=== PATIENT | female | born 1995 | race Hispanic/Latino ===

== ENCOUNTER 2016-09-14 19:28 | Emergency (ER) | payer MEDICAID, OTHER ==
[~2016-09-14] VITALS: Ht 165.1 cm; Wt 104.3 kg
[2016-09-14] MEDS ORDERED: ONDANSETRON 4MG/2ML VIAL (J2405) IV ONE (20:00)
[2016-09-14] MEDS ORDERED: ACETAMINOPHEN 325 MG TAB PO ONE (20:00)
[2016-09-14] MEDS ORDERED: MORPHINE 4 MG/ML 1ML SYRINGE IV ONE ×2 (20:00→21:30)
[2016-09-14] MEDS ORDERED: HYDROmorphone HCL 1 MG/ML SYRINGE (J1170) IV ONE (20:45)
[2016-09-14 21:02] LABS: BASO % 0.2 % (0.0-1.0); EOS # 0.1 K/mm3 (0.0-0.50); EOS % 1.1 % (0.0-3.0); LARGE UNSTAINED CELL # 0.1 K/mm3 (0.0-0.4); LARGE UNSTAINED CELL % 1.1 % (0.0-4.0); LYMPH # 1.6 K/mm3 (1.5-6.5); LYMPH % 12.4 % (24.0-44.0); MEAN CORPUSCULAR HEMOGLOBIN 26.8 pg (27.0-33.0); MEAN CORPUSCULAR HGB CONC 33.3 g/dl (32.0-36.5); MEAN CORPUSCULAR VOLUME 80.5 fl (80.0-96.0); MONO # 0.5 K/mm3 (0.0-0.8); MONO % 4.4 % (0.0-5.0); NEUTROPHILS # 9.8 K/mm3 (1.8-7.7); NEUTROPHILS % 80.7 % (36.0-66.0); PLATELET COUNT, AUTOMATED 379 k/mm3 (150-450); RED CELL DISTRIBUTION WIDTH 13.2 % (11.5-14.5); WHITE BLOOD COUNT 12.1 K/mm3 (4.0-10.0)
[2016-09-14 21:06] LABS: ANION GAP 10 MEQ/L (8-16); BLOOD UREA NITROGEN 13 MG/DL (7-18); CALCIUM LEVEL 9.1 MG/DL (8.5-10.1); CARBON DIOXIDE LEVEL 24 MEQ/L (21-32); CHLORIDE LEVEL 105 MEQ/L (98-107); CREATININE FOR GFR 0.87 MG/DL (0.55-1.02); GLUCOSE, FASTING 90 MG/DL (70-105); POTASSIUM SERUM 4.2 MEQ/L (3.5-5.1); SODIUM LEVEL 139 MEQ/L (136-145)
--- NOTE | 2016-09-14 21:33 | REP ---
Clinical: Acute headache . Comparison: None . Findings: The ventricles, sulci, and cisterns are normal in position and appearance. Vera-white differentiation is maintained. No acute intracranial hemorrhage, mass/mass effect, pathology or trauma/injury. No evidence for acute infarction. No extra-axial fluid collection. Calvarium is intact. Paranasal sinuses and mastoid air cells are clear. Impression: Normal noncontrast head CT. No evidence for acute intracranial pathology or trauma/injury. Signed by Jeff Torres MD 09/14/2016 09:24 P
[2016-09-14 21:37] LABS: METHADONE URINE NEGATIVE (NEGATIVE)
[2016-09-14] MEDS ORDERED: KETOROLAC 30 MG/ML VIAL (J1885) IV ONE (22:15)
[2016-09-14 22:45] LABS: GLUCOSE CSF 56 MG/DL (40-75)
[2016-09-14 22:51] LABS: RBC CSF AUTO 71 /mm3 (0-0); WBC CSF AUTO 4 /mm3 (0-10)
[2016-09-14 22:54] LABS: APPEARANCE, CSF CLEAR (CLEAR); COLOR, CSF COLORLESS (COLORLESS); CSF DIFF IF INDICATED? NO (NO); CSF TUBE# CELL CNT TUBE 4
[2016-09-14 22:55] LABS: CSF DILUENT LOT # 6165
[2016-09-14 23:23] LABS: RBC CSF AUTO 33 /mm3 (0-0); WBC CSF AUTO 4 /mm3 (0-10)
[2016-09-14 23:24] LABS: APPEARANCE, CSF CLEAR (CLEAR); COLOR, CSF COLORLESS (COLORLESS); CSF DIFF IF INDICATED? NO (NO); CSF TUBE# CELL CNT TUBE 3
[2016-09-14 23:43] VITALS: BP 126/78
[2016-09-14 23:49] LABS: CSF DILUENT LOT # 6165
== END 2016-09-15 00:02 | disposition home or self-care (01) ==
LOC: EDBD 19:28 → M ED 20:51
DX: R50.9 Fever, unspecified (principal); R51 Headache
CPT/HCPCS: 36415; 62270; 70450; 80048; 80306; 82945; 84157; 85025; 87015; 87040; 87070; 87205; 87529; 87804; 89050; 96374; 96375; 96376; 99284; J1170; J1885; J2405

== ENCOUNTER 2017-05-08 11:24 | Emergency (ER) | payer OTHER ==
[~2017-05-08] VITALS: Ht 165.1 cm; Wt 113.6 kg
[2017-05-08] MEDS ORDERED: ERYTOIN8 OS (13:54)
[2017-05-08 14:02] VITALS: BP 154/79
== END 2017-05-08 14:05 | disposition home or self-care (01) ==
LOC: M ED 11:24
DX: H00.014 Hordeolum externum left upper eyelid (principal)

== ENCOUNTER 2017-06-26 08:34 | Emergency (ER) | payer OTHER ==
[2017-06-26 10:05] LABS: CONTROL LINE MONO INT CTR LINE PRESENT
== END 2017-06-26 10:15 | disposition home or self-care (01) ==
LOC: M ED 08:34
DX: J02.9 Acute pharyngitis, unspecified (principal)
CPT/HCPCS: 86308

== ENCOUNTER 2018-06-05 07:12 | Emergency (ER) | payer OTHER | END 2018-06-05 07:57 | disposition home or self-care (01) | LOC: M ED 07:12 | DX: J02.9 Acute pharyngitis, unspecified (principal) | CPT/HCPCS: 87880 ==

== ENCOUNTER → 2018-12-24 | Outpatient (CLI) | payer OTHER ==
[~2018-12-24] MED LIST: AMOX500C PO; ERYTOIN8 OS; MAGICMW MT; PRED10TA2 PO
--- NOTE | 2018-12-24 15:02 | REP ---
Clinical: Trauma. Contusion. Technique: AP, lateral, bilateral oblique and sunrise views right knee. Findings: There is no evidence for acute fracture or dislocation. Mild degenerative changes are appreciated including subchondral sclerosis to the tibial plateau as well as very early spurring/osteophyte formation. Questionable small calcified loose body in the intercondylar notch cannot be excluded. Impression: Mild degenerative changes. No acute fracture or dislocation. Electronically Signed by Jeff Torres MD 12/24/2018 10:48 A
== END ==
LOC: M WUC 10:23
PROVIDERS: ATTEND Physician Assistant
DX: M17.11 Unilateral primary osteoarthritis, right knee (principal)

== ENCOUNTER → 2019-01-18 | Outpatient (REF) | payer OTHER | LOC: M LAB REF 09:56 | PROVIDERS: ATTEND Physician Assistant | DX: R11.0 Nausea (principal) ==

== ENCOUNTER → 2019-01-26 | Outpatient (CLI) | payer OTHER ==
[2019-01-26 13:06] LABS: BASO % 0.5 % (0.0-1.0); EOS # 0.2 10^3/uL (0.0-0.50); EOS % 2.4 % (0.0-3.0); HEMATOCRIT 37.5 % (36.0-47.0); HEMOGLOBIN 11.9 g/dl (12.0-15.5); LYMPH # 1.5 10^3/uL (1.5-6.5); MEAN CORPUSCULAR HEMOGLOBIN 26.3 pg (27.0-33.0); MEAN CORPUSCULAR HGB CONC 31.7 g/dl (32.0-36.5); MONO # 0.7 10^3/uL (0.0-0.8); MONO % 10.4 % (0.0-5.0); NEUTROPHILS # 4.2 10^3/uL (1.8-7.7); NEUTROPHILS % 63.5 % (36.0-66.0); PLATELET COUNT, AUTOMATED 358 10^3/uL (150-450); RED BLOOD COUNT 4.52 10^6/uL (4.00-5.40); WHITE BLOOD COUNT 6.6 10^3/uL (4.0-10.0)
[2019-01-26 13:21] LABS: ALBUMIN 3.4 GM/DL (3.2-5.2); ALT/SGPT 22 U/L (12-78); BILIRUBIN,TOTAL 0.3 MG/DL (0.2-1.0); BLOOD UREA NITROGEN 14 MG/DL (7-18); CALCIUM LEVEL 8.6 MG/DL (8.5-10.1); CARBON DIOXIDE LEVEL 29 MEQ/L (21-32); CHLORIDE LEVEL 105 MEQ/L (98-107); CREATININE FOR GFR 0.74 MG/DL (0.55-1.30); GLOMERULAR FILTRATION RATE > 60.0 (>60); GLUCOSE, FASTING 99 MG/DL (70-100); POTASSIUM SERUM 4.6 MEQ/L (3.5-5.1); SODIUM LEVEL 140 MEQ/L (136-145); TOTAL PROTEIN 7.6 GM/DL (6.4-8.2)
[2019-01-27 14:07] LABS: EBV VIRAL CAPSID AG IgM <36.0 U/mL (0.0-35.9)
== END ==
LOC: M WUC 08:48
PROVIDERS: ATTEND Physician Assistant
DX: J02.9 Acute pharyngitis, unspecified (principal)

== ENCOUNTER → 2019-02-21 | Outpatient (CLI) | payer OTHER ==
[2019-02-21 13:55] LABS: FREE T4 1.14 NG/DL (0.76-1.46)
[2019-02-21 13:58] LABS: LUTEINIZING HORMONE 9.8 mIU/mL
[2019-02-21 13:59] LABS: FOLLICLE STIMULATING HORMONE 8.4 mIU/mL
[2019-02-21 14:24] LABS: HCG, SERUM QUALITATIVE NEGATIVE (NEGATIVE)
[2019-02-22 09:41] LABS: HEPATITIS B SURFACE ANTIGEN NEGATIVE (NEGATIVE)
[2019-02-22 10:08] LABS: HEPATITIS B CORE ANTIBODY IGM NEGATIVE (NEGATIVE); HEPATITIS C VIRUS ABY INDEX 0.1 INDEX (<0.8)
[2019-02-22 10:11] LABS: HEPATITIS A ANTIBODY IGM NEGATIVE (NEGATIVE)
[2019-02-23 00:06] LABS: TESTOSTERONE FREE (DIRECT) 1.3 pg/mL (0.0-4.2)
== END ==
LOC: M SMT 10:15
PROVIDERS: ATTEND Advanced Practice Midwife
DX: N91.1 Secondary amenorrhea (principal)

== ENCOUNTER 2019-04-05 21:40 | Inpatient (IN) | payer MEDICAID, OTHER ==
[~2019-04-05] VITALS: Ht 165.1 cm; Wt 128.1 kg
[2019-04-05] MEDS ORDERED: NS 1,000 ML IV ONE (21:45)
[2019-04-05] MEDS ORDERED: CHARCOAL ACTIVATED LIQUID 25 GM/120 ML BTL PO ONE (22:00)
[2019-04-05 22:07] LABS: BASO # 0.1 10^3/uL (0.0-0.2); BASO % 0.5 % (0.0-1.0); EOS # 0.4 10^3/uL (0.0-0.5); EOS % 2.9 % (0.0-3.0); HEMATOCRIT 34.9 % (36.0-47.0); HEMOGLOBIN 11.5 g/dl (12.0-15.5); LYMPH # 3.6 10^3/uL (1.5-5.0); LYMPH % 27.4 % (24.0-44.0); MEAN CORPUSCULAR HEMOGLOBIN 27.3 pg (27.0-33.0); MEAN CORPUSCULAR VOLUME 82.7 fl (80.0-96.0); MONO # 0.7 10^3/uL (0.0-0.8); NEUTROPHILS # 8.4 10^3/uL (1.5-8.5); NEUTROPHILS % 63.8 % (36.0-66.0); PLATELET COUNT, AUTOMATED 391 10^3/uL (150-450); RED BLOOD COUNT 4.22 10^6/uL (4.00-5.40); WHITE BLOOD COUNT 13.1 10^3/uL (4.0-10.0)
[2019-04-05 22:33] LABS: HCG, SERUM QUALITATIVE NEGATIVE (NEGATIVE)
[2019-04-05 22:42] LABS: ACETAMINOPHEN LEVEL 78.1 UG/ML (10.0-30.0); ALBUMIN 3.5 GM/DL (3.2-5.2); ALT/SGPT 27 U/L (12-78); BILIRUBIN,DIRECT < 0.1 MG/DL (0.0-0.2); BILIRUBIN,TOTAL 0.5 MG/DL (0.2-1.0); BLOOD UREA NITROGEN 13 MG/DL (7-18); CALCIUM LEVEL 8.4 MG/DL (8.5-10.1); CARBON DIOXIDE LEVEL 25 MEQ/L (21-32); CHLORIDE LEVEL 105 MEQ/L (98-107); CPK CREATINE PHOSPHOKINASE 503 U/L (26-192); CREATININE FOR GFR 0.94 MG/DL (0.55-1.30); ETHYL ALCOHOL (ETHANOL) < 0.003 % (0.000-0.010); GLOMERULAR FILTRATION RATE > 60.0 (>60); GLUCOSE, FASTING 104 MG/DL (70-100); POTASSIUM SERUM 4.6 MEQ/L (3.5-5.1); SALICYLATE LEVEL < 1.7 MG/DL (5.0-30.0); SODIUM LEVEL 138 MEQ/L (136-145); TOTAL PROTEIN 7.5 GM/DL (6.4-8.2)
[2019-04-06 03:23] LABS: AMPHETAMINES LEVEL URINE NEGATIVE (NEGATIVE); BARBITURATES URINE NEGATIVE (NEGATIVE); BENZODIAZEPINES URINE NEGATIVE (NEGATIVE); CANNABINOIDS URINE NEGATIVE (NEGATIVE); COCAINE METABOLITE URINE NEGATIVE (NEGATIVE); METHADONE URINE NEGATIVE (NEGATIVE); OPIATES URINE NEGATIVE (NEGATIVE); PHENCYCLIDINE URINE NEGATIVE (NEGATIVE)
--- NOTE | 2019-04-06 10:55 | ECGEPIP ---
[facility] - ED Test Date: 2019-04-05 Pat Name: CARLOZ ZIMMERMAN Department: Room: - Gender: Female [employer] Supervisor: : 1995 Requested By: RODRICK Horn Order Number: [id number] Reading MD: Sabrina Contreras Measurements Intervals [place] Rate: 81 P: 12 MT: 172 QRS: 69 QRSD: 88 T: 30 QT: 346 QTc: 402 Interpretive Statements SINUS RHYTHM WITH SINUS ARRHYTHMIA NO PRIOR Electronically Signed on 04-06-2019 10:54:50 EDT by Sabrina Contreras
[2019-04-06] MEDS ORDERED: MOM 30ML SUSPENSION UDC PO PRN (12:30)
[2019-04-06] MEDS ORDERED: MAALOX 30 ML SUSP *UDC PO PRN (12:30)
[2019-04-06 14:52] VITALS: BP 134/70
[2019-04-06] MEDS ORDERED: traZODone 50 MG TAB PO PRN (21:00)
[2019-04-07 06:15] VITALS: BP 129/62
[2019-04-07 07:16] LABS: ALBUMIN 3.6 GM/DL (3.2-5.2); BILIRUBIN,DIRECT 0.1 MG/DL (0.0-0.2); BILIRUBIN,TOTAL 0.5 MG/DL (0.2-1.0); TOTAL PROTEIN 7.4 GM/DL (6.4-8.2)
--- NOTE | 2019-04-07 14:11 | MHHPEPDOC ---
General Date Of Admission: Apr 06, 2019 Legal Status: 9.39 Chief Complaint "I took an OD of Tylenol." History of Present Illness HISTORY OF THE PRESENT ILLNESS: Patient is a 23 -year-old , female, with no previous psych history who was brought to ED by her mother after pt called her mother and told her she overdosed on tylenol and needed help b/c she regretted doing it immediately after she took them. Pt in the ED stated that her boyfriend recently broke up with her last week, moved to [place], told her he didn't want to her, and was acting very cold toward her causing her to feel depressed, crying for the last 3 days, with eventual OD on tylenol that had not been planned. Pt stated in the ED that she regretted taking the OD and wanted to go home as her 4y/o daughter who had been visiting her father in [place] was returning the day of admission and pt wanted to be with her. Per ED, pt minimizing her symptoms. When pt first brought to ED she stated she took 50 tylenol then when seen by [facility] staff stated in was 15-20. She was given charcoal in ED per ED. Tylenol level in ED 78.1 03/06/19 then 44.9 03/07/19. Psychiatric Review of Systems Depression (2 or more weeks): depressed mood, feelings of worthlesness, difficulty concentrating, suicidal thoughts Psychosis: denies PTSD: denies Anxiety: situational anxiety, stressor related anxiety Anxiety/ 6 months or more of: restlessness, keyed up, difficulty concentrating Past Psychiatric History Previous Psychiatric Diagnosis: denies Previous Psychiatric Admissions: denies Suicide Attempts: denies Psychiatric Follow-up: denies Psychiatric medications: denies Past Medical History Medical Problems denies Head Injury: No Seizures: No Hospitalizations: No Surgeries: No Family Medical/Psychiatric HX Medical Problems noncontributory Psychiatric Disorders: No Addiction: No Suicide Attemps/Completions: No Addiction History denies Social History Childhood: Born and raised in [place], moved to [facility] with parents as a teen. Good childhood Abuse/Trauma:denies Current Living Situation: lives in [place] with her 4y/o daughter Education: high school grad Employment: works as a cook in a restaurant Social Support: mother Legal: denies Marital: , ex- lives in [place] and is 4y/o daughter's father Mental Status Examination General Appearance: well groomed, appears stated age, hospital scubs/clothing Build: average Demeanor: average Eye Contact: average Activity: anxious, other (pleasant, friendly) Behavior: cooperative Speech: clear, normal volume, reg/rate,rhythm,volume Mood: euthymic, anxious Mood "better" Affect: full, appropriate, congruent, anxious Thought Process: logical/linear, depressed, intact Thought Content (Delusions): none reported, denies SI, HI, AVH Thought Content (Other): none reported Thought Content (Aggressive): none reported Perception (Hallucinations): none reported Perception (Other): none reported Cognition (Impairment of): none reported Cognition(Intelligence Est.): average Oriented: Awake, Alert, Oriented times three Insight: fair Psychosis: Denies Diagnoses Adjustment d/o with depression and anxiety A-FIB/CHADSVASC A-FIB History Current/History of A-Fib/PAF?: No Assessment Pt seen and states she here b/c "I ended up having a rough night, my daughter has been away for 10 days, and my fiance just decided to move to [place]." States she had an anxiety attack and took some tylenol then tried to puck to get it out, called her family for help, family called pt's boyfriend who showed up to take her to the ED for help. States it was helpful for her in the ED and "they did some coping with them." States she feels better today but still has some anxiety due to current stressors and misses her daughter. Pt appears to have adjustment type disorder as denies depression prior break-up. Is attending groups and feels beneficial. Would prefer to try outpatient therapy first prior to starting any psychotropic medications. Will provide vistaril prn anxiety and trazodone prn insomnia, risks/benefits discussed. Denies SI/HI, hallucinations, delusions. Feels safe here. Initial Treatment Plan 1. Patient was admitted on a 9.39 status. 2. Complete history was obtained. 3. With patients permission, family will be contacted and database will be expanded. 4. Patients medication regimen will be reviewed and changed accordingly. 5. Patient will be provided with protected environment. 6. Patient will be treated with individual, group, and milieu therapies. 7. Patient will receive supportive psych-education. 8. Discharge planning will commence immediately. 9. Outpatient follow-up treatment will be strongly recommended. 10. The initial treatment plan will focus initially on: * Depression. * Risk for suicide. 11. vistaril 10mg q6hr prn anxiety and trazodone 50mg qhs prn insomnia ESTIMATED LENGTH OF STAY: 3-5 DAYS. TIME SPENT COUNSELING AND COORDINATING INITIAL CARE: 60 minutes. Vital Signs Vital Signs Date Time Temp Pulse Resp B/P (MAP) Pulse Ox O2 Delivery O2 Flow Rate FiO2 04/07/19 06:15 98.7 80 16 129/62 (84) 04/06/19 14:52 98 04/06/19 09:17 Room Air Laboratory Data 24H Labs Laboratory Tests 2 04/07/19 06:20: Ammonia 17 04/07/19 06:23: Aspartate Amino Transf (AST/SGOT) 16, Alanine Aminotransferase (ALT/SGPT) 27, Alkaline Phosphatase 74, Total Bilirubin 0.5, Direct Bilirubin 0.1, Total Protein 7.4, Albumin 3.6, Albumin/Globulin Ratio 0.95L Medications No Active Prescriptions or Reported Meds Allergies Coded Allergies: No Known Allergies (Unverified , 04/05/19) DEANNE LUKE DO Apr 07, 2019 14:11
[2019-04-07] MEDS ORDERED: hydrOXYzine 10 MG TAB PO PRN (14:15)
[2019-04-07 17:33] VITALS: BP 126/83
--- NOTE | 2019-04-08 06:26 | HPE ---
DATE OF ADMISSION: 04/06/2019 HISTORY OF PRESENT ILLNESS: Please refer to psychiatric history and evaluation for further details on this admission. This examination and history is intended for medical issues, which may need treatment, followup, or consult on this 23-year-old female. ALLERGIES: No known allergies. PRIMARY CARE PROVIDER: She currently has none. SOCIAL HISTORY: She is . She was upset over a breakup with her boyfriend. She took possibly 15-20 Tylenol. She has a daughter age 4. Ethyl alcohol (EtOH) none. Smokes none. Recreational drug use none. PAST MEDICAL HISTORY: Negative. PAST SURGICAL HISTORY: Left anterior cruciate ligament (ACL) repair. HOME MEDICATIONS: None. FAMILY HISTORY: Mother hypertension. Brother diabetic type 2. ELECTROCARDIOGRAM (EKG): Showed sinus rhythm with slight sinus arrhythmia at rate of 81. LABORATORY STUDIES: White count 13.1, hemoglobin 11.5, hematocrit 34.9, platelets 391. Sodium 138, potassium 4.6, chloride 105, CO2 25, BUN 13, creatinine 0.94, nonfasting glucose 104, calcium 8.4, AST initially 40, recheck 16, ALT 27, recheck 27, CPK was 503, recheck this morning was 311. Acetaminophen initially 78.1 at 21:59 on 04/05/2019. 1:30 a.m. on 04/06/2019 was down to 44.4. Ten systems review was done. The patient had no complaints. Was unremarkable. PHYSICAL EXAMINATION: A 23-year-old cooperative female, in no acute distress. Height 65 inches, weight 122.73 kg, body mass index (BMI) 45.0 kg, blood pressure is 134/70, pulse 76, respirations 20, temperature 98, oxygen (O2) saturation 98%. The patient is alert and oriented times three. Pupils are equal and react to light. Extraocular movements (EOMs) intact. Cornea and sclerae clear. Conjunctivae normal. No facial asymmetry. Pharynx, tongue, gums pink and moist. Tongue is midline. NECK: Is supple without lymphadenopathy. No thyromegaly. No goiter. Carotids 2+ without bruit. CHEST: Clear to auscultation without wheeze or retraction. HEART: Is regular. ABDOMEN: Is benign. Bowel sounds positive. GENITOURINARY ()/RECTAL: Not done. EXTREMITIES: Show equal strength, full range of motion. No cyanosis, clubbing, or edema. Peripheral pulses equal and palpable bilaterally. SKIN: Is warm and dry. Cranial nerves II-XII grossly intact. IMPRESSION AND PLAN: 1. Psychiatric plan per psychiatry. 2. Elevated CK. Will recheck in a.m. to ensure return to normal. 3. Leukocytosis, probably secondary to overdose. Will recheck complete blood count (CBC) in the a.m. 4. No other acute medical issues.
[2019-04-08 06:43] VITALS: BP 137/74
[2019-04-08 07:27] LABS: BASO % 0.4 % (0.0-1.0); EOS # 0.4 10^3/uL (0.0-0.5); EOS % 3.7 % (0.0-3.0); HEMATOCRIT 36.8 % (36.0-47.0); HEMOGLOBIN 11.8 g/dl (12.0-15.5); LYMPH # 2.8 10^3/uL (1.5-5.0); LYMPH % 28.7 % (24.0-44.0); MEAN CORPUSCULAR HEMOGLOBIN 26.6 pg (27.0-33.0); MEAN CORPUSCULAR HGB CONC 32.1 g/dl (32.0-36.5); MEAN CORPUSCULAR VOLUME 82.9 fl (80.0-96.0); MONO # 0.5 10^3/uL (0.0-0.8); MONO % 5.2 % (0.0-5.0); NEUTROPHILS % 61.8 % (36.0-66.0); PLATELET COUNT, AUTOMATED 365 10^3/uL (150-450); RED BLOOD COUNT 4.44 10^6/uL (4.00-5.40); WHITE BLOOD COUNT 9.8 10^3/uL (4.0-10.0)
--- NOTE | 2019-04-08 09:12 | MHIPNPDOC ---
[facility] Progress Note Progress Note DATE OF SERVICE: 04/08/19 HISTORY: Patient is a 23 -year-old , female, with no previous psych history who was brought to ED by her mother after pt called her mother and told her she overdosed on tylenol and needed help b/c she regretted doing it immediately after she took them. Pt in the ED stated that her boyfriend recently broke up with her last week, moved to [place], told her he didn't want to her, and was acting very cold toward her causing her to feel depressed, crying for the last 3 days, with eventual OD on tylenol that had not been planned. Pt stated in the ED that she regretted taking the OD and wanted to go home as her 4y/o daughter who had been visiting her father in [place] was returning the day of admission and pt wanted to be with her. Per ED, pt minimizing her symptoms. When pt first brought to ED she stated she took 50 tylenol then when seen by [facility] staff stated in was 15-20. She was given charcoal in ED per ED. Tylenol level in ED 78.1 03/06/19 then 44.9 03/07/19. Pt seen and states she here b/c "I ended up having a rough night, my daughter has been away for 10 days, and my fiance just decided to move to [place]." States she had an anxiety attack and took some tylenol then tried to puck to get it out, called her family for help, family called pt's boyfriend who showed up to take her to the ED for help. States it was helpful for her in the ED and "they did some coping with them." States she feels better today but still has some anxiety due to current stressors and misses her daughter. Pt appears to have adjustment type disorder as denies depression prior break-up. Is attending groups and feels beneficial. Would prefer to try outpatient therapy first prior to starting any psychotropic medications. Will provide vistaril prn anxiety and trazodone prn insomnia, risks/benefits discussed. Denies SI/HI, hallucinations, delusions. Feels safe here. VITAL SIGNS: See below. NEW TEST RESULTS: tylenol level less than 2 (wnl). LFTs wnl, CPK 233 and is improving daily CURRENT MEDICATIONS: See below. MENTAL STATUS EXAMINATION: General Appearance: well groomed, appears stated age, hospital scrubs/clothing Build: average Demeanor: average Eye Contact: average Activity: anxious, other (pleasant, friendly) Behavior: cooperative Speech: clear, normal volume, reg/rate,rhythm,volume Mood: euthymic, less anxious Mood "alright" Affect: full, appropriate, congruent, less anxious Thought Process: logical/linear, less depressed, intact Thought Content (Delusions): none reported, denies SI, HI, AVH Thought Content (Other): none reported Thought Content (Aggressive): none reported Perception (Hallucinations): none reported Perception (Other): none reported Cognition (Impairment of): none reported Cognition(Intelligence Est.): average Oriented: Awake, Alert, Oriented times three Insight: fair Psychosis: Denies DIAGNOSES: Adjustment d/o with depression and anxiety ASSESSMENT:Pt seen and states that her mood is "alright." Endorses improved anxiety with attending groups and socializing with peers. Denies need to take vistaril for anxiety or trazodone for sleep since admission. States she's sleeping well at night w/o trazodone. States she's being social on the milieu which is beneficial. She is attending groups and finding them helpful. She denies SI/HI, hallucinations, delusions. Pt feels safe here. MANAGEMENT PLAN: continue plan vistaril 10mg q6hr prn anxiety trazodone 50mg qhs prn insomnia TIME SPENT: 30 minutes. Vital Signs Vital Signs Date Time Temp Pulse Resp B/P (MAP) Pulse Ox O2 Delivery O2 Flow Rate FiO2 04/08/19 06:43 98.0 83 14 137/74 (95) 04/06/19 14:52 98 04/06/19 09:17 Room Air Laboratory Data 24H Labs Laboratory Tests 2 04/07/19 15:42: Acetaminophen Level < 2.0L 04/08/19 07:02: Immature Granulocyte % (Auto) 0.2, White Blood Count 9.8, Red Blood Count 4.44, Hemoglobin 11.8L, Hematocrit 36.8, Mean Corpuscular Volume 82.9, Mean Corpuscular Hemoglobin 26.6L, Mean Corpuscular Hemoglobin Concent 32.1, Red Cell Distribution Width 12.8, Platelet Count 365, Neutrophils (%) (Auto) 61.8, Lymphocytes (%) (Auto) 28.7, Monocytes (%) (Auto) 5.2H, Eosinophils (%) (Auto) 3.7H, Basophils (%) (Auto) 0.4, Neutrophils # (Auto) 6.0, Lymphocytes # (Auto) 2.8, Monocytes # (Auto) 0.5, Eosinophils # (Auto) 0.4, Basophils # (Auto) 0.0, Nucleated Red Blood Cells % (auto) 0.0, Total Creatine Kinase 223H CBC/BMP Laboratory Tests 04/08/19 07:02 Red Blood Count 4.44, Mean Corpuscular Volume 82.9, Mean Corpuscular Hemoglobin 26.6 L, Mean Corpuscular Hemoglobin Concent 32.1, Red Cell Distribution Width 12.8, Neutrophils (%) (Auto) 61.8, Lymphocytes (%) (Auto) 28.7, Monocytes (%) (Auto) 5.2 H, Eosinophils (%) (Auto) 3.7 H, Basophils (%) (Auto) 0.4, Neutrophils # (Auto) 6.0, Lymphocytes # (Auto) 2.8, Monocytes # (Auto) 0.5, Eosinophils # (Auto) 0.4, Basophils # (Auto) 0.0 Current Medications Current Medications Medications (Trade) Dose Ordered Sig/Windy Route PRN Reason Start Time Stop Time Status Last Admin Dose Admin Al Hydrox/Mg Hydrox/Simethicone (Mylanta) 30 ml Q4HP PRN PO HEARTBURN/INDIGESTION 04/06/19 12:30 Home Med (Med Rec Complete!) ASDIRECTED XX 04/06/19 13:30 04/06/19 13:25 DC Hydroxyzine HCl (Atarax) 10 mg Q6HP PRN PO ANXIETY/AGITATION 04/07/19 14:15 Magnesium Hydroxide (Milk Of Magnesia) 30 ml DAILYPRN PRN PO CONSTIPATION 04/06/19 12:30 Trazodone HCl (Desyrel) 50 mg QHSP PRN PO INSOMNIA 04/06/19 21:00 Allergies Coded Allergies: No Known Allergies (Unverified , 04/05/19) DEANNE LUKE DO Apr 08, 2019 9:12 am
[2019-04-08 16:00] VITALS: BP 127/78
[2019-04-09 06:35] VITALS: BP 129/73
--- NOTE | 2019-04-09 08:50 | MHIPNPDOC ---
[facility] Progress Note Progress Note DATE OF SERVICE: 04/09/19 HISTORY: Patient is a 23 -year-old , female, with no previous psych history who was brought to ED by her mother after pt called her mother and told her she overdosed on tylenol and needed help b/c she regretted doing it immediately after she took them. Pt in the ED stated that her boyfriend recently broke up with her last week, moved to [place], told her he didn't want to her, and was acting very cold toward her causing her to feel depressed, crying for the last 3 days, with eventual OD on tylenol that had not been planned. Pt stated in the ED that she regretted taking the OD and wanted to go home as her 4y/o daughter who had been visiting her father in [place] was returning the day of admission and pt wanted to be with her. Per ED, pt minimizing her symptoms. When pt first brought to ED she stated she took 50 tylenol then when seen by [facility] [place] staff stated in was 15-20. She was given charcoal in ED per ED. Tylenol level in ED 78.1 03/06/19 then 44.9 03/07/19. Pt seen and states she here b/c "I ended up having a rough night, my daughter has been away for 10 days, and my fiance just decided to move to [place]." States she had an anxiety attack and took some tylenol then tried to puck to get it out, called her family for help, family called pt's boyfriend who showed up to take her to the ED for help. States it was helpful for her in the ED and "they did some coping with them." States she feels better today but still has some anxiety due to current stressors and misses her daughter. Pt appears to have adjustment type disorder as denies depression prior break-up. Is attending groups and feels beneficial. Would prefer to try outpatient therapy first prior to starting any psychotropic medications. Will provide vistaril prn anxiety and trazodone prn insomnia, risks/benefits discussed. Denies SI/HI, hallucinations, delusions. Feels safe here. VITAL SIGNS: See below. NEW TEST RESULTS: tylenol level less than 2 (wnl). LFTs wnl, CPK 233 and is improving daily CURRENT MEDICATIONS: See below. MENTAL STATUS EXAMINATION: General Appearance: well groomed, appears stated age, hospital scrubs/clothing Build: average Demeanor: average Eye Contact: average Activity: anxious, other (pleasant, friendly) Behavior: cooperative Speech: clear, normal volume, reg/rate,rhythm,volume Mood: euthymic, less anxious, bright Mood "good" Affect: full, appropriate, congruent, less anxious Thought Process: logical/linear, less depressed, intact Thought Content (Delusions): none reported, denies SI, HI, AVH Thought Content (Other): none reported Thought Content (Aggressive): none reported Perception (Hallucinations): none reported Perception (Other): none reported Cognition (Impairment of): none reported Cognition(Intelligence Est.): average Oriented: Awake, Alert, Oriented times three Insight: fair Psychosis: Denies DIAGNOSES: Adjustment d/o with depression and anxiety ASSESSMENT:Pt seen and states that her mood is "alright." Endorses improved anxiety with attending groups and socializing with peers. Read to me some of her journal entries which she finds very helpful. Denies need to take vistaril for anxiety or trazodone for sleep since admission. States she's sleeping well at night w/o trazodone. States she's being social on the milieu which is beneficial. She is attending groups and finding them helpful. She denies SI/HI, hallucinations, delusions. Pt feels safe here. MANAGEMENT PLAN: d/c planning home tomorrow. vistaril 10mg q6hr prn anxiety trazodone 50mg qhs prn insomnia TIME SPENT: 30 minutes. Vital Signs Vital Signs Date Time Temp Pulse Resp B/P (MAP) Pulse Ox O2 Delivery O2 Flow Rate FiO2 04/09/19 06:35 97.2 71 14 129/73 (91) 04/06/19 14:52 98 04/06/19 09:17 Room Air Current Medications Current Medications Medications (Trade) Dose Ordered Sig/Windy Route PRN Reason Start Time Stop Time Status Last Admin Dose Admin Al Hydrox/Mg Hydrox/Simethicone (Mylanta) 30 ml Q4HP PRN PO HEARTBURN/INDIGESTION 04/06/19 12:30 Home Med (Med Rec Complete!) ASDIRECTED XX 04/06/19 13:30 04/06/19 13:25 DC Hydroxyzine HCl (Atarax) 10 mg Q6HP PRN PO ANXIETY/AGITATION 04/07/19 14:15 Magnesium Hydroxide (Milk Of Magnesia) 30 ml DAILYPRN PRN PO CONSTIPATION 04/06/19 12:30 Trazodone HCl (Desyrel) 50 mg QHSP PRN PO INSOMNIA 04/06/19 21:00 Allergies Coded Allergies: No Known Allergies (Unverified , 04/05/19) DEANNE LUKE DO Apr 09, 2019 8:50 am
[2019-04-09 15:56] VITALS: BP 119/58
[2019-04-10 06:23] VITALS: BP 119/65
--- NOTE | 2019-04-10 08:58 | MHDSPDOC ---
[facility] Discharge Summary Discharge Summary DATE OF ADMISSION: Apr 06, 2019 at 12:28 pm DATE OF DISCHARGE: Apr 10, 2019 DISCHARGE DIAGNOSES: Adjustment d/o with depression and anxiety REASON FOR ADMISSION: Patient is a 23 -year-old , female, with no previous psych history who was brought to ED by her mother after pt called her mother and told her she overdosed on tylenol and needed help b/c she regretted doing it immediately after she took them. Pt in the ED stated that her boyfriend recently broke up with her last week, moved to [place], told her he didn't want to her, and was acting very cold toward her causing her to feel depressed, crying for the last 3 days, with eventual OD on tylenol that had not been planned. Pt stated in the ED that she regretted taking the OD and wanted to go home as her 4y/o daughter who had been visiting her father in [place] was returning the day of admission and pt wanted to be with her. Per ED, pt minimizing her symptoms. When pt first brought to ED she stated she took 50 tylenol then when seen by [facility] staff stated in was 15-20. She was given charcoal in ED per ED. Tylenol level in ED 78.1 03/06/19 then 44.9 03/07/19. Pt seen and states she here b/c "I ended up having a rough night, my daughter has been away for 10 days, and my fiance just decided to move to [place]." States she had an anxiety attack and took some tylenol then tried to puck to get it out, called her family for help, family called pt's boyfriend who showed up to take her to the ED for help. States it was helpful for her in the ED and "they did some coping with them." States she feels better today but still has some anxiety due to current stressors and misses her daughter. Pt appears to have adjustment type disorder as denies depression prior break-up. Is attending groups and feels beneficial. Would prefer to try outpatient therapy first prior to starting any psychotropic medications. Will provide vistaril prn anxiety and trazodone prn insomnia, risks/benefits discussed. Denies SI/HI, hallucinations, delusions. Feels safe here. CONSULTANTS INVOLVED: none TEST RESULTS: tylenol level less than 2 (wnl). LFTs wnl, CPK 233 and is improving daily TREATMENT AND PROGRESS ON THE UNIT : Pt was admitted to [facility], seen for psychiatric assessment and monitored for safety as she declined to start a [facility] psychotropic medication preferring to try outpatient therapy as treatment first. She was provided vistaril 10mg q6hr prn anxiety and trazodone 50mg qhs prn insomnia. Pt found her medications beneficial and tolerated them well. She attended groups daily during her stay. Her symptoms improved with treatment. On day of discharge she denied depression, anxiety, insomnia, SI/HI, hallucinations, delusions. She was discharged home with follow-up at [facility]. She felt safe for discharge. DISCHARGE ASSESSMENT: Pt seen and states that her mood is "good" and feels safe to go home today. She is attending groups and socializing with peers which she finds beneficial. Is journaling which she finds very helpful. Denies need to take vistaril for anxiety or trazodone for sleep since admission. States she's sleeping well at night w/o trazodone. States she's being social on the milieu which is beneficial. She is attending groups and finding them helpful. She denies depression, anxiety, insomnia, SI/HI, hallucinations, delusions. Pt feels safe to be discharged home. MENTAL STATUS EXAMINATION ON DISCHARGE: General Appearance: well groomed, appears stated age, hospital scrubs/clothing Build: average Demeanor: average Eye Contact: average Activity: pleasant, friendly Behavior: cooperative Speech: clear, normal volume, reg/rate,rhythm,volume Mood: euthymic, bright Mood "good" Affect: full, appropriate, congruent Thought Process: logical/linear, intact Thought Content (Delusions): none reported, denies SI, HI, AVH Thought Content (Other): none reported Thought Content (Aggressive): none reported Perception (Hallucinations): none reported Perception (Other): none reported Cognition (Impairment of): none reported Cognition(Intelligence Est.): average Oriented: Awake, Alert, Oriented times three Insight: good Psychosis: Denies MEDICATIONS ON DISCHARGE: vistaril 10mg q6hr prn anxiety trazodone 50mg qhs prn insomnia PLAN/FOLLOWUP ARRANGEMENTS: D/c home with follow-up at [facility]. The amount of time spent in the coordination of care for this patient was approximately 30 minutes. Vital Signs/I&Os Vital Signs Date Time Temp Pulse Resp B/P (MAP) Pulse Ox O2 Delivery O2 Flow Rate FiO2 04/10/19 06:23 97.2 70 16 119/65 (83) 04/06/19 14:52 98 04/06/19 09:17 Room Air Medications Scheduled PRN Hydroxyzine HCl (Hydroxyzine HCl) 10 Mg Tablet, 10 MG PO Q6HP PRN for ANXIETY/AGITATION, #30 Trazodone HCl (Trazodone HCl) 50 Mg Tablet, 50 MG PO QHSP PRN for INSOMNIA, #10 Allergies Coded Allergies: No Known Allergies (Unverified , 04/05/19) DEANNE LUKE DO Apr 10, 2019 8:57 am
[2019-04-10] MEDS ORDERED: TRAZ-252 PO (08:59)
[2019-04-10] MEDS ORDERED: HYDR-643 PO (08:59)
== END 2019-04-10 11:20 | disposition home or self-care (01) | DRG 755 ==
LOC: M ED 21:40 → M ED INP 04-06 12:28 → M PSY 04-06 14:10
PROVIDERS: ADMIT Psychiatry & Neurology Psychiatry; ATTEND Psychiatry & Neurology Psychiatry
DX: F43.23 Adjustment disorder with mixed anxiety and depressed mood (principal); T39.1X2A Poisoning by 4-Aminophenol derivatives, intentional self-harm, initial encounter; Z63.0 Problems in relationship with spouse or partner

== ENCOUNTER → 2019-12-21 | Outpatient (CLI) | payer MEDICAID ==
[~2019-12-21] MED LIST changes: +HYDR-643 PO; +TRAZ-252 PO
== END ==
LOC: M WUC 13:53
PROVIDERS: ATTEND Physician Assistant
DX: Z33.1 Pregnant state, incidental (principal)

== ENCOUNTER → 2020-01-16 | Outpatient (REF) | payer MEDICAID ==
[2020-01-16 18:55] LABS: HEMATOCRIT 35.3 % (36.0-47.0); HEMOGLOBIN 11.6 g/dl (12.0-15.5); MEAN CORPUSCULAR HEMOGLOBIN 27.2 pg (27.0-33.0); MEAN CORPUSCULAR HGB CONC 32.9 g/dl (32.0-36.5); MEAN CORPUSCULAR VOLUME 82.7 fl (80.0-96.0); PLATELET COUNT, AUTOMATED 397 10^3/uL (150-450); RED BLOOD COUNT 4.27 10^6/uL (4.00-5.40); WHITE BLOOD COUNT 10.5 10^3/uL (4.0-10.0)
[2020-01-17 10:40] LABS: HEPATITIS C VIRUS ABY INDEX 0.1 INDEX (<0.8); HIV 1&2 SCREEN CENTAUR NEGATIVE (NEGATIVE)
[2020-03-13 09:27] LABS: HGB SOLUBILITY SEE SEPARATE REPORT
== END ==
LOC: M LAB REF 17:21
PROVIDERS: ATTEND Obstetrics & Gynecology
DX: O36.80X0 Pregnancy with inconclusive fetal viability, not applicable or unspecified (principal)

== ENCOUNTER → 2020-01-22 | Outpatient (CLI) | payer OTHER ==
--- NOTE | 2020-03-21 09:42 | REP ---
OBSTETRIC ULTRASOUND, FIRST TRIMESTER FOR VIABILITY Delay in reporting results from hospital computer system malfunction from malware/ ransomware. Patient does not know the date of her last menstrual period (LMP). There is a single intrauterine gestation. The heart rate is 128 beats per minute. There is movement. The pole crown-rump length is 50 mm corresponding to 11 weeks 6 days gestational age. No subchorionic hematoma is identified. The maternal right and left ovaries could not be visualized at this time. Cervix measures 3.2 cm in length. IMPRESSION: There is a viable intrauterine gestation at 11 weeks 6 days gestational age. MTDD
== END ==
LOC: M WHC 15:11
PROVIDERS: ATTEND Obstetrics & Gynecology
DX: O36.80X0 Pregnancy with inconclusive fetal viability, not applicable or unspecified (principal); Z3A.11 11 weeks gestation of pregnancy

== ENCOUNTER 2020-01-23 22:35 | Emergency (ER) | payer OTHER | END 2020-01-23 22:55 | disposition home or self-care (01) | LOC: M ED 22:35 | DX: O9A.211 Injury, poisoning and certain other consequences of external causes complicating pregnancy, first trimester (principal); S60.512A Abrasion of left hand, initial encounter; S60.222A Contusion of left hand, initial encounter; V43.52XA Car driver injured in collision with other type car in traffic accident, initial encounter; Y92.410 Unspecified street and highway as the place of occurrence of the external cause; Z3A.12 12 weeks gestation of pregnancy ==

== ENCOUNTER → 2020-03-29 | Outpatient (CLI) | payer OTHER ==
--- NOTE | 2020-04-08 10:01 | REP ---
OBSTETRIC SONOGRAPHY HISTORY: Supervision of for anatomy. Second trimester study. FINDINGS: Scanning through the gravid uterus demonstrates a single living intrauterine gestation in a transverse head to the maternal left lie. The placenta is anterior grade 0 without evidence of previa. heart rate is recorded at 155 beats per minute. Amniotic fluid is subjectively normal. Closed cervical length measures 3.3 cm, viewed transabdominally. Three vessel umbilical cord is seen. Exam quality was inhibited to some degree by position and maternal body habitus. nose and lips, right ventricular outflow tract, kidneys and spine are less than optimally seen as a result. The following additional anatomic structures are identified and felt to be unremarkable: cranium and intracranial anatomy, facial profile, four chamber heart with left ventricular outflow tract view, diaphragm, left-sided stomach, urinary bladder, upper and lower extremities. BIOMETRY CHART: BPD 5.0 cm 21 weeks 1 day Head circumference 19.0 cm 21 weeks 2 days Abdominal circumference 16.1 cm 21 weeks 1 day Femur length 3.5 cm 21 weeks 1 day Humeral length 3.3 cm 21 weeks 1 day AC/HC ratio 1.18 Normal Cephalic index 0.73 Normal Estimated weight 406 g, 2 pounds 14 ounces 39th percentile for 21 weeks 2 days IMPRESSION: Viable single intrauterine gestation at 21 weeks 1 day by todays composite criteria. Estimated date of delivery (BRIE) by todays sonography 08/08/2020. anatomic survey less than complete as above. MTDD
== END ==
LOC: M WHC 14:50
PROVIDERS: ATTEND Obstetrics & Gynecology
DX: Z34.82 Encounter for supervision of other normal pregnancy, second trimester (principal)

== ENCOUNTER → 2020-04-30 | Outpatient (CLI) | payer OTHER ==
--- NOTE | 2020-04-30 10:28 | REP ---
INDICATION: F/U ANATOMY. COMPARISON: Comparison study March 29, 2020.. TECHNIQUE: Transabdominal obstetric sonography. FINDINGS: Scanning through the gravid uterus demonstrates a viable single intrauterine gestation in cephalic lie. motion is observed and heart rate is recorded at 158 beats per minute. A anterior placenta is seen, grade 1, without evidence of placenta previa. Amniotic fluid is subjectively normal. Closed cervical length is measured at 3.4 cm transabdominally. No extrauterine abnormality is observed. No anomaly is seen. The following anatomic structures are identified and felt to be sonographically unremarkable: cranium, choroid plexus, cavum, cerebellum and posterior fossa, face and profile, lungs, four-chamber heart with left and right ventricular outflow tract views, diaphragm, left-sided stomach, abdominal wall cord insertion, three-vessel umbilical cord, kidneys and bladder, spine, and upper and lower extremities. Biometry chart: BPD 6.4 centimeters, 25 weeks 6 days Head circumference 24.0 centimeters, 26 weeks 1 day Abdominal circumference 22.2 centimeters, 26 weeks 4 days Femur length 5.3 centimeters, 28 weeks 2 days Humeral length 4.7 centimeters, 27 weeks 4 days HC AC ratio normal 1.08 Cephalic index normal 0.73 Estimated weight 1028 grams, 2 pounds 4 ounces, 86th percentile for 25 weeks 6 days IMPRESSION: Viable single intrauterine gestation at 25 weeks 6 days by today's composite sonographic criteria. BRIE by today's sonography July 31, 2020.. No complication identified. anatomic survey is felt to be complete <Electronically signed by Brian Morley > 04/30/20 1024
== END ==
LOC: M WHC 08:58
PROVIDERS: ATTEND Advanced Practice Midwife
DX: Z34.82 Encounter for supervision of other normal pregnancy, second trimester (principal); Z36.2 Encounter for other antenatal screening follow-up; Z3A.25 25 weeks gestation of pregnancy

== ENCOUNTER → 2020-06-19 | Outpatient (CLI) | payer OTHER ==
[2020-06-19 10:35] LABS: MEAN CORPUSCULAR HEMOGLOBIN 26.8 pg (27.0-33.0); MEAN CORPUSCULAR HGB CONC 32.4 g/dl (32.0-36.5); MEAN CORPUSCULAR VOLUME 82.7 fl (80.0-96.0); PLATELET COUNT, AUTOMATED 380 10^3/uL (150-450); RED BLOOD COUNT 4.11 10^6/uL (4.00-5.40); WHITE BLOOD COUNT 14.4 10^3/uL (4.0-10.0)
== END ==
LOC: M LAB 08:52
PROVIDERS: ATTEND Advanced Practice Midwife
DX: Z34.82 Encounter for supervision of other normal pregnancy, second trimester (principal); Z3A.00 Weeks of gestation of pregnancy not specified

== ENCOUNTER → 2020-06-26 | Outpatient (CLI) | payer OTHER | LOC: M LAB 07:44 | PROVIDERS: ATTEND Obstetrics & Gynecology | DX: Z34.83 Encounter for supervision of other normal pregnancy, third trimester (principal); Z3A.00 Weeks of gestation of pregnancy not specified ==

== ENCOUNTER → 2020-07-02 | Outpatient (REF) | payer OTHER | LOC: M LAB REF 16:18 | PROVIDERS: ATTEND Obstetrics & Gynecology | DX: Z34.83 Encounter for supervision of other normal pregnancy, third trimester (principal); Z3A.00 Weeks of gestation of pregnancy not specified ==

== ENCOUNTER → 2020-07-04 | Outpatient (REF) | payer OTHER ==
[2020-07-04 13:47] LABS: FREE T3 2.7 PG/ML (2.2-4.0); FREE T4 1.08 NG/DL (0.76-1.46); THYROID STIMULATING HORMONE 2.31 uIU/ML (0.358-3.740)
[2020-07-04 13:56] LABS: HEMOGLOBIN A1c 6.1 %
== END ==
LOC: M LAB REF 12:12
PROVIDERS: ATTEND Advanced Practice Midwife
DX: Z34.03 Encounter for supervision of normal first pregnancy, third trimester (principal)

== ENCOUNTER → 2020-07-05 | Outpatient (CLI) | payer OTHER ==
--- NOTE | 2020-07-05 11:20 | REP ---
INDICATION: GETATIONAL DIABETES,CHARLENE,EFW COMPARISON: 05/27/2020 TECHNIQUE: Transabdominal obstetrical ultrasound with color Doppler evaluation. FINDINGS: Examination demonstrates a single live intrauterine in cephalic presentation. motion is identified by technologist. Placenta is noted anterior and grade 3 without evidence for placenta previa or abruption. Amniotic fluid volume is normal. Cervix measures 3.6 cm in length and appears closed.. Gestational age by LMP thirty-five weeks 2 days with BRIE 08/07/2020. Gestational age by current measurements 35 weeks 5 days with BRIE 08/04/2020. FHR equals 138 beats per minute. CHARLENE: 15.7 cm (7.8-24.9) Biophysical profile score: 8/8 Estimated weight by current measurements 2730 grams (58thpercentile). Umbilical artery 1 SD ratio: 2.72 (1.67-3.57) Umbilical artery 2 SD ratio: 2.07 IMPRESSION: Single live advanced gestation in cephalic presentation demonstrating appropriate estimated weight and growth. Normal biophysical profile score and amniotic fluid volume. <Electronically signed by Jeff Torres > 07/05/20 0785
== END ==
LOC: M WHC 10:26
PROVIDERS: ATTEND Obstetrics & Gynecology
DX: O24.429 Gestational diabetes mellitus in childbirth, unspecified control (principal); Z3A.35 35 weeks gestation of pregnancy

== ENCOUNTER 2020-07-30 12:04 | Inpatient (IN) | payer OTHER ==
[2020-07-30] VITALS (9 sets, daily range): BP systolic 117–153; BP diastolic 58–82
[~2020-07-30] VITALS: Ht 165.1 cm; Wt 126.8 kg
--- OUTSIDE RECORDS SUMMARY | 2020-07-30 12:08 | CCD | Continuity of Care Document ---
Author Author Daija BURROWS Organization Unknown Address [address] [place] [id number] Phone [phone] Care Team Providers Care Lift Supervisor Name Role Phone [facility] [phone] Problems Description No Information Available Social History Type Date Description Comments Sex Unknown Allergies, Adverse Reactions, Alerts Description No Information Available Medications Description No Information Available Immunizations Description No Information Available Vital Signs Description No Information Available Results Description No Information Available Procedures Description No Information Available Medical Devices Description No Information Available Encounters Description No Information Available Assessments Description No Information Available Plan of Treatment No Information Available Functional Status Description No Information Available Mental Status Description No Information Available Referrals Description No Information Available
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
[2020-07-30] MEDS ORDERED: PRENTAB9 PO (12:17)
[2020-07-30] MEDS ORDERED: AMPICILLIN SOD 2 GM in D5W MINI-BAG PLUS 100 ML IV STA (12:28)
[2020-07-30] MEDS: LR 1,000 ML IV SCH ×2 (13:12→18:55)
[2020-07-30] MEDS: miSOPROStol 50MCG 1/2 TABLET PO SCH ×3 (13:20→21:51)
[2020-07-30] MEDS ORDERED: GLYB5TAB6 PO (13:33)
[2020-07-30 13:34] LABS: HEMOGLOBIN 10.5 g/dl (12.0-15.5); MEAN CORPUSCULAR HEMOGLOBIN 25.7 pg (27.0-33.0); MEAN CORPUSCULAR HGB CONC 31.8 g/dl (32.0-36.5); MEAN CORPUSCULAR VOLUME 80.9 fl (80.0-96.0); PLATELET COUNT, AUTOMATED 365 10^3/uL (150-450); RED BLOOD COUNT 4.08 10^6/uL (4.00-5.40); WHITE BLOOD COUNT 9.9 10^3/uL (4.0-10.0)
[2020-07-30 14:10] LABS: ALBUMIN 2.5 GM/DL (3.2-5.2); ALT/SGPT 15 U/L (12-78); BILIRUBIN,TOTAL 0.3 MG/DL (0.2-1.0); BLOOD UREA NITROGEN 10 MG/DL (7-18); CALCIUM LEVEL 8.9 MG/DL (8.5-10.1); CARBON DIOXIDE LEVEL 24 MEQ/L (21-32); CHLORIDE LEVEL 108 MEQ/L (98-107); CREATININE FOR GFR 0.67 MG/DL (0.55-1.30); GLOMERULAR FILTRATION RATE > 60.0 (>60); GLUCOSE, FASTING 55 MG/DL (70-100); POTASSIUM SERUM 4.3 MEQ/L (3.5-5.1); SODIUM LEVEL 138 MEQ/L (136-145); TOTAL PROTEIN 6.4 GM/DL (6.4-8.2)
--- NOTE | 2020-07-30 14:38 | HPE ---
HISTORY AND PHYSICAL DATE OF ADMISSION: 07/30/2020 HISTORY OF PRESENT ILLNESS: Daija is a 24-year-old female 2, para 1-0-0-1 with an EDC of 08/06/2020, EGA 39 and 2/7 weeks gestation, who is being admitted for an induction. The patient does have a history of diabetes controlled on diet. Upon admission, no bleeding and no leakage of fluid. Irregular contractions. Her record reviewed. The patient is blood type O positive, rubella immune, hepatitis negative, HIV negative, GC and chlamydia negative. Her one hour sugar testing was abnormal. GBS is positive. The patient does have type 2 diabetes currently on glyburide. PAST MEDICAL HISTORY: Significant for type 2 diabetes. PAST SURGICAL HISTORY: Denies. SOCIAL HISTORY: She denies any alcohol, drug, or cigarette smoking. REVIEW OF SYSTEMS: Unremarkable. MEDICATIONS: - vitamin. - glyburide 5 mg b.i.d. FAMILY HISTORY: Significant for hypertension and diabetes. ALLERGIES: No known drug allergies. PHYSICAL EXAMINATION: Obese female in no acute distress. Abdomen soft, nontender, and nondistended. Extremities with no clubbing, cyanosis, or edema. On vaginal exam one fingertip thick and posterior. Fetus at -3 station in vertex position. Tracing reviewed with category 1 tracing. ASSESSMENT: 1. Intrauterine at 39 and 2/7 weeks gestation. 2. Type 2 diabetes controlled on glyburide. 3. Obesity. PLAN: Admit to labor and delivery. Induction process discussed with the patient in detail. Decision made to proceed with Cytotec induction as we do not have Cervidil on formulary hear. The risks and benefits of Cytotec induction discussed with the patient in great detail. Pain management also discussed. The patient is considering an epidural. We will continue to monitor. Anticipate delivery.
[2020-07-31] VITALS (44 sets, daily range): BP systolic 80–181; BP diastolic 39–92
[2020-07-31] MEDS ORDERED: BUTORPHANOL 2 MG/ML INJ (J0595) IV ONE (02:15)
[2020-07-31] MEDS ORDERED: PROMETHAZINE INJ 25 MG/ML VIAL (J2550) IV ONE (02:15)
[2020-07-31] MEDS: LR 1,000 ML IV SCH ×3 (03:30→14:33)
[2020-07-31] MEDS ORDERED: ONDANSETRON 4MG/2ML VIAL IV ONE (07:00)
[2020-07-31] MEDS ORDERED: AMPICILLIN SOD 2 GM in D5W MINI-BAG PLUS 100 ML IV ONE (07:00)
[2020-07-31] MEDS ORDERED: FENTANYL 2MCG/ML ROPIVACAINE 0.2% IN 0.9% NACL 100ML IVBAG As Ordered ONE (08:00)
[2020-07-31] MEDS ORDERED: FENTANYL/ROPIVACAINE/NACL BAG 100 ML EPIDURAL SCH (08:15)
[2020-07-31] MEDS ORDERED: LACTATED RINGER'S 1000 ML IV PRN (08:15)
[2020-07-31] MEDS ORDERED: NALOXONE INJ 0.4MG/1ML VIAL (J2310 PER 1MG) IV PRN (08:15)
[2020-07-31] MEDS ORDERED: diphenhydrAMINE 50MG/ML VIAL (J1200) IV PRN (08:15)
[2020-07-31] MEDS ORDERED: EPIDURAL/PCA KEYS XX PRN (08:15)
[2020-07-31] MEDS ORDERED: ONDANSETRON 4MG/2ML VIAL IV PRN (08:15)
[2020-07-31] MEDS ORDERED: EPIDURAL COMMENT XX SCH (08:15)
[2020-07-31] MEDS ORDERED: REFRIGERATOR IV KEYS XX PRN (08:15)
[2020-07-31] MEDS ORDERED: OXYTOCIN 30 UNITS IN 0.9% NaCl 500ML IV BAG (J2590) As Ordered ONE (09:33)
[2020-07-31] MEDS ORDERED: OXYTOCIN DRIP 30 UNITS in IV 1 EA IV SCH ×2 (10:30→16:39)
[2020-07-31] MEDS: ePHEDrine SULFATE 25 MG/5 ML(5MG/ML) SYRINGE IV PRN ×3 (10:49→12:22)
[2020-07-31] MEDS: AMPICILLIN SOD 1 GM in D5W MINI-BAG PLUS 50 ML IV SCH ×2 (11:47→16:07)
[2020-07-31] MEDS ORDERED: ACETAMINOPHEN 500 MG TAB PO PRN (16:45)
[2020-07-31] MEDS ORDERED: MEASLES,MUMPS,RUBELLA VACCINE INJ (MMR-II) (90707) SC SCH (16:45)
[2020-07-31] MEDS ORDERED: DOCUSATE SODIUM 100MG CAPSULE PO PRN (16:45)
[2020-07-31] MEDS ORDERED: RHOGAM 300 MCG (1500 IU) INJ (J2790) IM SCH (16:45)
[2020-07-31] MEDS ORDERED: ACETAMINOPHEN TAB 650MG DOSE (2X325MG) PO PRN (16:45)
[2020-07-31] MEDS ORDERED: METHYLERGONOVINE MALEATE 0.2 MG TAB PO PRN (16:45)
[2020-07-31] MEDS ORDERED: BENZOCAINE 20% HEMORRHOIDAL OINTMENT 28GM TUBE TOP PRN (16:45)
[2020-07-31] MEDS ORDERED: IBUPROFEN 800 MG TAB PO PRN (16:45)
[2020-07-31 16:56] LABS: CORD GAS ABE V -9.1; CORD GAS HCO3 V 18.1 MEQ/L; CORD GAS O2 SAT V 60.1 %; CORD GAS PCO2 V 43.4 mmHg; CORD GAS PH V 7.238 UNITS; CORD GAS PO2 V 27.8 mmHg; CORD GAS SBC V 16.5 MEQ/L; CORD GAS TCO2 V 19.4 MEQ/L
[2020-07-31 16:57] LABS: CORD GAS ABE A -7.4; CORD GAS HCO3 A 22.9 MEQ/L; CORD GAS O2 SAT A 18.8 %; CORD GAS PCO2 A 65.2 mmHg; CORD GAS PH A 7.163 UNITS; CORD GAS PO2 A 13.8 mmHg; CORD GAS SBC A 16.6 MEQ/L; CORD GAS TCO2 A 24.9 MEQ/L
--- NOTE | 2020-07-31 17:30 | DN ---
DELIVERY NOTE DATE OF DELIVERY: 07/31/2020 DESCRIPTION OF DELIVERY: Daija is a 24-year-old female, 2, para 1, 0, 0, 1, with a history of gestational diabetes and obesity on Glyburide. She was admitted at 39-3/7 weeks' gestation for induction. She underwent three Cytotec, followed by artificial rupture of membranes and Pitocin induction with meconium stain fluid. She then progressed to fully dilated after an epidural. She delivered a live female infant in left occiput anterior position with a nuchal cord x1. scores 6 and 9, weight 7 pounds, 5 ounces. Placenta delivered spontaneously intact, three-vessel cord. Perineum, vagina, and cervix inspected. First-degree midline laceration noted, which was repaired using 2-0 chromic sutures. Estimated blood loss: 250 cc. Both mother and baby in stable condition.
[2020-08-01 06:00] VITALS: BP 137/71
[2020-08-01] MEDS: PRENATAL VITAMINS CHEWABLE TABLET PO SCH (09:00)
[2020-08-01] MEDS: IBUPROFEN 600MG TAB PO PRN ×2 (09:00→22:13)
[2020-08-01] MEDS ORDERED: INFLUENZA QUADRIVALENT PF VACCINE 0.5ML SYRINGE IM ONE (09:00)
[2020-08-01 18:00] VITALS: BP 131/93
[2020-08-02 05:50] VITALS: BP 144/72
[2020-08-02] MEDS: PRENATAL VITAMINS CHEWABLE TABLET PO SCH (08:39)
[2020-08-02] MEDS ORDERED: INFLUENZA QUADRIVALENT PF VACCINE 0.5ML SYRINGE IM ONE (09:00)
== END 2020-08-02 14:00 | disposition home or self-care (01) | DRG 560 ==
LOC: M LDI 12:04 → M OBS 07-31 18:43
PROVIDERS: ADMIT Obstetrics & Gynecology; ATTEND Obstetrics & Gynecology
PROC: 3E0P7GC Introduction of Other Therapeutic Substance into Female Reproductive, Via Natural or Artificial Opening (ICD-10-PCS; 2020-07-30)
PROC: 10E0XZZ Delivery of Products of Conception, External Approach (ICD-10-PCS; principal; 2020-07-31)
PROC: 10907ZC Drainage of Amniotic Fluid, Therapeutic from Products of Conception, Via Natural or Artificial Opening (ICD-10-PCS; 2020-07-31)
PROC: 0HQ9XZZ Repair Perineum Skin, External Approach (ICD-10-PCS; 2020-07-31)
DX: O24.12 Pre-existing type 2 diabetes mellitus, in childbirth (principal); Z3A.37 37 weeks gestation of pregnancy; Z37.0 Single live birth; O99.824 Streptococcus B carrier state complicating childbirth; Z79.84 Long term (current) use of oral hypoglycemic drugs; O99.214 Obesity complicating childbirth; E66.9 Obesity, unspecified; O77.0 Labor and delivery complicated by meconium in amniotic fluid; O69.81X0 Labor and delivery complicated by cord around neck, without compression, not applicable or unspecified; O70.0 First degree perineal laceration during delivery

== ENCOUNTER → 2021-06-30 | Outpatient (CLI) | payer OTHER ==
[~2021-06-30] MED LIST changes: +GLYB5TAB6 PO; +PRENTAB9 PO
[2021-06-30 13:44] LABS: HEMATOCRIT 37.3 % (36.0-47.0); HEMOGLOBIN 12.1 g/dl (12.0-15.5); MEAN CORPUSCULAR HEMOGLOBIN 27.6 pg (27.0-33.0); MEAN CORPUSCULAR HGB CONC 32.4 g/dl (32.0-36.5); PLATELET COUNT, AUTOMATED 356 10^3/uL (150-450); RED BLOOD COUNT 4.39 10^6/uL (4.00-5.40); WHITE BLOOD COUNT 10.6 10^3/uL (4.0-10.0)
[2021-06-30 14:00] LABS: GLUCOSE CHALLENGE TEST 1 HOUR 105 MG/DL (LESS THAN 140)
[2021-06-30 14:52] LABS: GC DNA AMPLIFICATION NEGATIVE (NEGATIVE)
[2021-06-30 14:57] LABS: HEPATITIS C VIRUS ABY INDEX 0.1 INDEX (<0.8); HIV 1&2 SCREEN CENTAUR NEGATIVE (NEGATIVE)
== END ==
LOC: M PLALAB 10:18
PROVIDERS: ATTEND Obstetrics & Gynecology
DX: O09.291 Supervision of pregnancy with other poor reproductive or obstetric history, first trimester (principal)

== ENCOUNTER → 2021-08-15 | Outpatient (CLI) | payer OTHER | LOC: M WHC 07:20 | PROVIDERS: ATTEND Obstetrics & Gynecology | DX: Z36.89 Encounter for other specified antenatal screening (principal); Z3A.18 18 weeks gestation of pregnancy ==

== ENCOUNTER → 2021-10-23 | Outpatient (CLI) | payer OTHER | LOC: M WHC 09:08 | PROVIDERS: ATTEND Obstetrics & Gynecology | DX: Z34.83 Encounter for supervision of other normal pregnancy, third trimester (principal) ==

== ENCOUNTER → 2021-11-04 | Outpatient (CLI) | payer OTHER ==
[2021-11-04 17:56] LABS: HEMATOCRIT 32.6 % (36.0-47.0); HEMOGLOBIN 10.6 g/dl (12.0-15.5); MEAN CORPUSCULAR HEMOGLOBIN 27.4 pg (27.0-33.0); MEAN CORPUSCULAR HGB CONC 32.5 g/dl (32.0-36.5); MEAN CORPUSCULAR VOLUME 84.2 fl (80.0-96.0); PLATELET COUNT, AUTOMATED 322 10^3/uL (150-450); RED BLOOD COUNT 3.87 10^6/uL (4.00-5.40); WHITE BLOOD COUNT 15.1 10^3/uL (4.0-10.0)
== END ==
LOC: M PLALAB 14:23
PROVIDERS: ATTEND Obstetrics & Gynecology
DX: Z34.83 Encounter for supervision of other normal pregnancy, third trimester (principal)

== ENCOUNTER 2021-11-16 16:20 | Outpatient (CLI) | payer OTHER ==
[~2021-11-16] VITALS: Ht 165.1 cm; Wt 121.5 kg
[2021-11-16 16:40] VITALS: BP 138/63
[2021-11-16] MEDS ORDERED: ACETAMINOPHEN 500 MG TAB PO ONE (17:05)
== END 2021-11-16 18:10 | disposition home or self-care (01) ==
LOC: M LDO 16:20
PROVIDERS: ATTEND Obstetrics & Gynecology
DX: O26.893 Other specified pregnancy related conditions, third trimester (principal); R10.2 Pelvic and perineal pain; Z3A.34 34 weeks gestation of pregnancy

== ENCOUNTER → 2021-11-17 | Outpatient (CLI) | payer OTHER | LOC: M LAB 08:53 | PROVIDERS: ATTEND Obstetrics & Gynecology | DX: R73.01 Impaired fasting glucose (principal) ==

== ENCOUNTER → 2021-11-20 | Outpatient (CLI) | payer OTHER | LOC: M WHC 09:50 | PROVIDERS: ATTEND Advanced Practice Midwife | DX: O09.293 Supervision of pregnancy with other poor reproductive or obstetric history, third trimester (principal); Z3A.35 35 weeks gestation of pregnancy ==

== ENCOUNTER → 2021-11-25 | Outpatient (REF) | payer OTHER | LOC: M SFHCWAGY 10:00 | PROVIDERS: ATTEND Obstetrics & Gynecology | DX: O24.419 Gestational diabetes mellitus in pregnancy, unspecified control (principal) ==

== ENCOUNTER 2021-12-03 10:31 | Inpatient (IN) | payer OTHER ==
[~2021-12-03] VITALS: Ht 165.1 cm; Wt 125.1 kg
[2021-12-03] VITALS (16 sets, daily range): BP systolic 121–150; BP diastolic 62–76
[2021-12-03] MEDS ORDERED: LIDOCAINE 1% MDV 20ML VIAL INFIL PRN (11:10)
[2021-12-03] MEDS ORDERED: OXYTOCIN DRIP 30 UNITS in IV 1 EA IV PRN ×4 (11:10)
[2021-12-03] MEDS ORDERED: METHYLERGONOVINE MALEATE 0.2 MG/ML VIAL (J2210) IM PRN (11:10)
[2021-12-03] MEDS ORDERED: TRANEXAMIC ACID INJection 1,000 MG in NS 100 ML IV PRN (11:10)
[2021-12-03] MEDS ORDERED: OXYTOCIN INJ 10 UNITS/ML VIAL (J2590) IM PRN (11:10)
[2021-12-03] MEDS: miSOPROStol 50MCG 1/2 TABLET PO SCH ×2 (11:40→15:49)
[2021-12-03 12:46] LABS: HEMATOCRIT 32.3 % (36.0-47.0); HEMOGLOBIN 10.6 g/dl (12.0-15.5); MEAN CORPUSCULAR HEMOGLOBIN 27.2 pg (27.0-33.0); MEAN CORPUSCULAR HGB CONC 32.8 g/dl (32.0-36.5); PLATELET COUNT, AUTOMATED 295 10^3/uL (150-450); RED BLOOD COUNT 3.89 10^6/uL (4.00-5.40); WHITE BLOOD COUNT 11.8 10^3/uL (4.0-10.0)
[2021-12-03 14:32] LABS: HEMOGLOBIN A1c 6.2 %
[2021-12-03] MEDS ORDERED: OXYTOCIN DRIP 30 UNITS in IV 1 EA IV SCH (19:20)
[2021-12-03] MEDS: LR 1,000 ML IV SCH (22:39)
[2021-12-04] VITALS (42 sets, daily range): BP systolic 129–180; BP diastolic 56–94
[2021-12-04] MEDS ORDERED: fentaNYL 100 MCG/2 ML INJECTION As Ordered ONE (02:20)
[2021-12-04] MEDS ORDERED: FENTANYL 2MCG/ML ROPIVACAINE 0.2% IN 0.9% NACL 100ML IVBAG As Ordered ONE (02:22)
[2021-12-04] MEDS ORDERED: ePHEDrine SULFATE 25 MG/5 ML(5MG/ML) SYRINGE IVP PRN (03:20)
[2021-12-04] MEDS ORDERED: diphenhydrAMINE 50MG/ML VIAL (J1200) IV PRN (03:20)
[2021-12-04] MEDS ORDERED: ONDANSETRON 4MG/2ML VIAL IV PRN ×2 (03:20→11:35)
[2021-12-04] MEDS ORDERED: NALOXONE INJ 0.4MG/1ML VIAL (J2310 PER 1MG) IV PRN (03:20)
[2021-12-04] MEDS ORDERED: EPIDURAL/PCA KEYS XX PRN (03:20)
[2021-12-04] MEDS ORDERED: LR 500 ML IV PRN (03:20)
[2021-12-04] MEDS: FENTANYL/ROPIVACAINE/NACL BAG 100 ML EPIDURAL SCH ×2 (06:46→10:20)
[2021-12-04] MEDS: LR 1,000 ML IV SCH (07:24)
[2021-12-04] MEDS: PRENATAL VITAMINS CHEWABLE TABLET PO SCH (09:00)
[2021-12-04 11:23] LABS: CORD GAS ABE A -4.5; CORD GAS ABE V -4.5; CORD GAS HCO3 A 24.5 MEQ/L; CORD GAS HCO3 V 21.9 MEQ/L; CORD GAS O2 SAT A 40.5 %; CORD GAS O2 SAT V 72.8 %; CORD GAS PCO2 A 60.3 mmHg; CORD GAS PCO2 V 44.7 mmHg; CORD GAS PH A 7.227 UNITS; CORD GAS PH V 7.308 UNITS; CORD GAS PO2 A 21.4 mmHg; CORD GAS SBC A 19.3 MEQ/L; CORD GAS SBC V 20.1 MEQ/L; CORD GAS TCO2 A 26.4 MEQ/L; CORD GAS TCO2 V 23.3 MEQ/L
[2021-12-04] MEDS ORDERED: LR 1,000 ML IV SCH (11:35)
[2021-12-04] MEDS ORDERED: RHOGAM 300 MCG (1500 IU) INJ (J2790) IM SCH (11:35)
[2021-12-04] MEDS ORDERED: DIBUCAINE 1% OINTMENT 30GM TOP PRN (11:35)
[2021-12-04] MEDS ORDERED: ACETAMINOPHEN 500 MG TAB PO PRN (11:35)
[2021-12-04] MEDS ORDERED: IBUPROFEN 600MG TAB PO PRN (11:35)
[2021-12-04] MEDS ORDERED: OXYTOCIN DRIP 30 UNITS in IV 1 EA IV SCH (11:35)
[2021-12-04] MEDS ORDERED: ACETAMINOPHEN TAB 650MG DOSE (2X325MG) PO PRN (11:35)
[2021-12-04] MEDS ORDERED: DOCUSATE SODIUM 100MG CAPSULE PO PRN (11:35)
[2021-12-04] MEDS ORDERED: IBUPROFEN 800 MG TAB PO PRN (11:35)
[2021-12-05 06:00] VITALS: BP 151/72
[2021-12-05] MEDS: PRENATAL VITAMINS CHEWABLE TABLET PO SCH (08:25)
[2021-12-05 18:00] VITALS: BP 140/74
[2021-12-06 06:10] VITALS: BP 130/83
[2021-12-06] MEDS: PRENATAL VITAMINS CHEWABLE TABLET PO SCH (08:48)
[2021-12-06] MEDS ORDERED: MEASLES,MUMPS,RUBELLA VACCINE INJ (MMR-II) (90707) SC ONE (09:00)
[2021-12-06] MEDS ORDERED: IBUP-1022 PO (11:23)
[2021-12-06] MEDS ORDERED: ACET-683 PO (11:23)
[2021-12-06] MEDS ORDERED: COLA100C5 PO (11:23)
[2021-12-06] MEDS ORDERED: NORE0.353 PO (11:23)
== END 2021-12-06 13:39 | disposition home or self-care (01) | DRG 560 ==
LOC: M LDI 10:31 → M OBS 12-04 15:30
PROVIDERS: ADMIT Advanced Practice Midwife; ATTEND Obstetrics & Gynecology
PROC: 3E0P7GC Introduction of Other Therapeutic Substance into Female Reproductive, Via Natural or Artificial Opening (ICD-10-PCS; 2021-12-03)
PROC: 10E0XZZ Delivery of Products of Conception, External Approach (ICD-10-PCS; principal; 2021-12-04)
DX: O24.429 Gestational diabetes mellitus in childbirth, unspecified control (principal); E66.9 Obesity, unspecified; Z3A.37 37 weeks gestation of pregnancy; O99.214 Obesity complicating childbirth; O70.0 First degree perineal laceration during delivery; Z37.0 Single live birth; O69.81X0 Labor and delivery complicated by cord around neck, without compression, not applicable or unspecified

== ENCOUNTER → 2022-04-16 | Outpatient (CLI) | payer OTHER ==
[~2022-04-16] MED LIST changes: +ACET-683 PO; +COLA100C5 PO; +IBUP-1022 PO; +NORE0.353 PO
== END ==
LOC: M PLALAB 13:41
PROVIDERS: ATTEND Obstetrics & Gynecology
DX: O36.80X0 Pregnancy with inconclusive fetal viability, not applicable or unspecified (principal)

== ENCOUNTER → 2022-06-12 | Outpatient (REF) | payer OTHER ==
[2022-06-12 12:31] LABS: THYROID STIMULATING HORMONE 2.393 uIU/ML (0.55-4.78)
[2022-06-12 12:32] LABS: ALBUMIN 3.4 G/DL (3.2-5.2); ALKALINE PHOSPHATASE 66 U/L (46-116); ALT/SGPT 15 U/L (7.0-40); AST/SGOT 19 U/L (<34); BILIRUBIN,TOTAL 0.5 MG/DL (0.3-1.2); BLOOD UREA NITROGEN 10 MG/DL (9-23); CALCIUM LEVEL 8.8 MG/DL (8.5-10.1); CARBON DIOXIDE LEVEL 25 MMOL/L (20-31); CHLORIDE LEVEL 104 MMOL/L (98-107); CHOLESTEROL LEVEL 144 MG/DL (<200); CHOLESTEROL RISK RATIO 3.96 (<5); CREATININE FOR GFR 0.67 MG/DL (0.55-1.30); FREE T4 1.16 NG/DL (0.89-1.76); GLOMERULAR FILTRATION RATE > 60.0 (>60); GLUCOSE, FASTING 94 MG/DL (60-100); HDL CHOLESTEROL 36.3 MG/DL (>40); LDL CHOLESTEROL 85.7 MG/DL (<100); NON-HDL-C 108 MG/DL; POTASSIUM SERUM 4.5 MMOL/L (3.5-5.1); SODIUM LEVEL 141 MMOL/L (136-145); TOTAL PROTEIN 7.1 G/DL (5.7-8.2); TRIGLYCERIDES LEVEL 110 MG/DL (<150)
[2022-06-12 12:34] LABS: BASO % 0.4 % (0.0-1.0); EOS # 0.2 10^3/uL (0.0-0.5); EOS % 2.3 % (0.0-3.0); HEMATOCRIT 36.3 % (36.0-47.0); HEMOGLOBIN 11.5 g/dl (12.0-15.5); LYMPH # 2.2 10^3/uL (1.5-5.0); LYMPH % 26.5 % (24.0-44.0); MEAN CORPUSCULAR HEMOGLOBIN 26.3 pg (27.0-33.0); MEAN CORPUSCULAR HGB CONC 31.7 g/dl (32.0-36.5); MEAN CORPUSCULAR VOLUME 83.1 fl (80.0-96.0); MONO # 0.5 10^3/uL (0.0-0.8); MONO % 6.4 % (2.0-8.0); NEUTROPHILS # 5.3 10^3/uL (1.5-8.5); NEUTROPHILS % 64.2 % (36.0-66.0); PLATELET COUNT, AUTOMATED 330 10^3/uL (150-450); RED BLOOD COUNT 4.37 10^6/uL (4.00-5.40); WHITE BLOOD COUNT 8.2 10^3/uL (4.0-10.0)
[2022-06-12 12:40] LABS: HEMOGLOBIN A1c 5.3 % (4.0-6.0)
== END ==
LOC: M LAB REF 11:32
PROVIDERS: ATTEND Nurse Practitioner Family
DX: Z13.228 Encounter for screening for other metabolic disorders (principal)

== ENCOUNTER → 2023-07-30 | Outpatient (REF) | payer OTHER ==
[~2023-07-30] MED LIST changes: +ONDA4TAB6 PO; +PEPT262T2 PO
[2023-07-30 13:29] LABS: BASO % 0.4 % (0.0-1.0); EOS # 0.2 10^3/uL (0.0-0.5); EOS % 2.6 % (0.0-3.0); HEMATOCRIT 36.5 % (36.0-47.0); HEMOGLOBIN 11.9 g/dl (12.0-15.5); LYMPH % 28.2 % (24.0-44.0); MEAN CORPUSCULAR HEMOGLOBIN 28.2 pg (27.0-33.0); MEAN CORPUSCULAR HGB CONC 32.6 g/dl (32.0-36.5); MEAN CORPUSCULAR VOLUME 86.5 fl (80.0-96.0); MONO # 0.4 10^3/uL (0.0-0.8); MONO % 5.4 % (2.0-8.0); NEUTROPHILS # 4.6 10^3/uL (1.5-8.5); NEUTROPHILS % 63.1 % (36.0-66.0); PLATELET COUNT, AUTOMATED 340 10^3/uL (150-450); RED BLOOD COUNT 4.22 10^6/uL (4.00-5.40); WHITE BLOOD COUNT 7.2 10^3/uL (4.0-10.0)
[2023-07-30 13:46] LABS: HEMOGLOBIN A1c 5.5 % (4.0-6.0)
[2023-07-30 13:54] LABS: ALBUMIN 3.6 G/DL (3.2-5.2); ALKALINE PHOSPHATASE 63 U/L (46-116); ALT/SGPT 14 U/L (7.0-40); AST/SGOT 14 U/L (<34); BILIRUBIN,TOTAL 0.6 MG/DL (0.3-1.2); BLOOD UREA NITROGEN 11 MG/DL (9-23); CALCIUM LEVEL 8.6 MG/DL (8.5-10.1); CARBON DIOXIDE LEVEL 28 MMOL/L (20-31); CHLORIDE LEVEL 104 MMOL/L (98-107); CHOLESTEROL LEVEL 151 MG/DL (<200); CHOLESTEROL RISK RATIO 3.19 (<5); CREATININE FOR GFR 0.67 MG/DL (0.55-1.30); GLOMERULAR FILTRATION RATE > 60.0 (>60); GLUCOSE, FASTING 91 MG/DL (60-100); HDL CHOLESTEROL 47.2 MG/DL (>40); LDL CHOLESTEROL 93.4 MG/DL (<100); NON-HDL-C 103.8 MG/DL; POTASSIUM SERUM 4.6 MMOL/L (3.5-5.1); SODIUM LEVEL 137 MMOL/L (136-145); TOTAL PROTEIN 7.2 G/DL (5.7-8.2); TRIGLYCERIDES LEVEL 52 MG/DL (<150)
[2023-07-30 13:58] LABS: THYROID STIMULATING HORMONE 1.858 uIU/ML (0.55-4.78)
[2023-07-30 13:59] LABS: TOTAL 25(OH) VITAMIN D 22.4 NG/ML (20.0-100.0)
== END ==
LOC: M LAB REF 12:17
PROVIDERS: ATTEND Nurse Practitioner Family
DX: Z13.228 Encounter for screening for other metabolic disorders (principal)

== ENCOUNTER → 2023-08-19 | Outpatient (CLI) | payer OTHER | LOC: M SOG 08:47 | PROVIDERS: ATTEND Physician Assistant | DX: M25.541 Pain in joints of right hand (principal); M25.542 Pain in joints of left hand ==

== ENCOUNTER → 2023-10-06 | Outpatient (REF) | payer OTHER ==
[2023-10-06 18:27] LABS: MONO SCRN NEGATIVE (NEGATIVE)
== END ==
LOC: M LABWUC 16:18
PROVIDERS: ATTEND Nurse Practitioner Family
DX: L30.9 Dermatitis, unspecified (principal)

== ENCOUNTER 2024-06-22 09:19 | Emergency (ER) | payer OTHER ==
[~2024-06-22] VITALS: Ht 165.1 cm; Wt 124.0 kg
[~2024-06-22 09:19] MED LIST changes: +ONDA-282 PO; -ONDA4TAB6 PO
[2024-06-22 09:38] VITALS: BP 155/90; TEMP 97.6; O2SAT 99
== END 2024-06-22 10:18 | disposition left against medical advice (07) ==
LOC: M ED 09:19
DX: Z53.21 Procedure and treatment not carried out due to patient leaving prior to being seen by health care provider (principal)